=== PATIENT | female | born 1985 | race Hispanic/Latino ===

== ENCOUNTER 2021-08-21 12:24 | Outpatient (CLI) | payer OTHER ==
[2021-08-22 01:42] LABS: SARS-CoV-2 PCR by NAA Not Detected (NotDetected)
== END 2021-08-21 12:25 | disposition home or self-care (01) ==
LOC: CSHLAB 12:24
PROVIDERS: ATTEND Family Medicine
DX: Z01.812 Encounter for preprocedural laboratory examination (principal); Z20.822 Contact with and (suspected) exposure to COVID-19
CPT/HCPCS: U0003; U0005

== ENCOUNTER 2021-08-25 19:11 | Inpatient (IN) | payer OTHER ==
[~2021-08-25 19:11] MED LIST: Bupivacaine 0.25% HCL 30 ML VIAL ONE
[2021-08-25] MEDS ORDERED: Ibuprofen 800 MG TAB PO PRN (19:44)
[2021-08-25] MEDS ORDERED: Acetaminophen/Codeine 30-300mg Tablet PO PRN (19:44)
[2021-08-25] MEDS ORDERED: hydrALAZINE 20 MG/ML VIAL SLOW IVP PRN (19:44)
[2021-08-25] MEDS ORDERED: Butorphanol Tartrate 1 MG/ML VIAL SLOW IVP PRN (19:44)
[2021-08-25] MEDS ORDERED: Misoprostol 200 MCG TAB PR PRN (19:44)
[2021-08-25] MEDS ORDERED: Ondansetron PF 4 MG/2 ML Vial IVP PRN (19:44)
[2021-08-25] MEDS ORDERED: Methylergonovine 0.2 MG/ML VIAL IM PRN (19:44)
[2021-08-25] MEDS ORDERED: Diphenoxylate HCl/Atropine Tablet PO PRN (19:44)
[2021-08-25] MEDS ORDERED: Acetaminophen 500 MG TAB PO PRN (19:44)
[2021-08-25] MEDS ORDERED: Carboprost 250 MCG/ML AMP IM PRN (19:44)
[2021-08-25] MEDS ORDERED: Lidocaine 1% (PF) 30 ML VIAL SC PRN (19:44)
[2021-08-25] MEDS ORDERED: Meperidine HCl/PF 25 MG/ML VIAL IM/IV PRN (19:44)
[2021-08-25] MEDS ORDERED: Promethazine HCl 25 MG/ML VIAL IM PRN (19:44)
[2021-08-25] MEDS ORDERED: NS w/ Oxytocin 30 units 500 ML IV SCH (19:45)
[2021-08-25 21:52] LABS: Hemoglobin 12.9 g/dL (12.0-15.5); Mean Corpuscular HGB CONC 32.8 g/dL (32.0-36.0); Mean Corpuscular Hemoglobin 30.1 pg (27.0-33.0); Mean Corpuscular Volume 91.6 fl (81.6-98.3); Mean Platelet Volume 10.9 fl (7.4-10.4); Platelet Count 206 10x3/uL (150-450); RBC Distribution Width 13.2 % (11.5-14.5); Red Blood Cell (RBC) Count 4.29 10x6/uL (3.90-5.03); White Blood Cell (WBC) Count 11.4 10x3/uL (3.5-10.5)
[2021-08-25] MEDS ORDERED: Misoprostol 100 MCG TAB ONE (21:54)
[2021-08-25] MEDS ORDERED: Misoprostol 100 MCG TAB VAG SCH (22:00)
[2021-08-25 22:29] LABS: Hep B Surf Ag Non-Reactive S/CO (NonReactive); Syphilis Antibody Nonreactive (Nonreactive); Syphilis Antibody Index 0.18 S/CO (<1.00 Non-Reactive)
[2021-08-25 22:33] LABS: HBSAg Index 0.18 S/CO (0-0.99)
[2021-08-26 01:00] VITALS: BMI 30.9
[2021-08-26] MEDS ORDERED: Fentanyl 2 mcg/Bup 0.1% Cadd 100 ML ONE ×2 (06:29→13:42)
[2021-08-26] MEDS ORDERED: diphenhydrAMINE 50 MG/ML VIAL IVP PRN (09:05)
[2021-08-26] MEDS ORDERED: Promethazine HCl 25 MG/ML VIAL IM PRN (09:05)
[2021-08-26] MEDS ORDERED: Naloxone HCl 0.4 mg/ml Vial IVP PRN ×2 (09:05)
[2021-08-26] MEDS ORDERED: Lactated Ringer's 500 ML IV PRN (09:05)
[2021-08-26] MEDS ORDERED: Ondansetron PF 4 MG/2 ML Vial IVP PRN (09:05)
[2021-08-26] MEDS ORDERED: ePHEDrine Sulfate 50 MG/10 ML VIAL SLOW IVP PRN (09:05)
[2021-08-26] MEDS ORDERED: Hydrocerin (Eucerin) Cream 120 gm Jar TOP PRN (09:05)
[2021-08-26] MEDS ORDERED: Fentanyl 2 mcg/Bupivacaine 0.1% Cassette 100 ML EPIDURAL SCH (09:15)
[2021-08-26] MEDS ORDERED: Communication Order-Pharmacy FS SCH (09:15)
[2021-08-26] MEDS ORDERED: Fentanyl 100 MCG/2 ML VIAL ONE (09:59)
[2021-08-26] MEDS: Lactated Ringer's 1,000 ML IV SCH (11:05)
[2021-08-27] MEDS ORDERED: Measles/Mumps/Rubella 10 MCG/0.5 ML VIAL SC ONE (01:01)
[2021-08-27] MEDS ORDERED: Lanolin Ointment 7 GM TUBE TOP PRN (01:01)
[2021-08-27] MEDS ORDERED: Preparation H Ointment 28 GM TUBE PR PRN (01:01)
[2021-08-27] MEDS ORDERED: Boostrix 0.5 ML (Tdap) VIAL IM ONE (01:01)
[2021-08-27] MEDS ORDERED: Milk Of Magnesia 30 ML UDCUP PO PRN (01:01)
[2021-08-27] MEDS ORDERED: Bisacodyl 10 MG SUPP PR PRN (01:01)
[2021-08-27] MEDS ORDERED: diphenhydrAMINE 25 MG CAP PO PRN (01:01)
[2021-08-27] MEDS ORDERED: hydrALAZINE 20 MG/ML VIAL SLOW IVP PRN (01:01)
[2021-08-27] MEDS ORDERED: Varicella virus, LIVE 0.5 ML VIAL SC ONE (01:01)
[2021-08-27] MEDS ORDERED: Benzocaine-Menthol 82.5 ML CAN TOP PRN (01:01)
[2021-08-27] MEDS ORDERED: Ondansetron PF 4 MG/2 ML Vial IVP PRN (01:01)
[2021-08-27] MEDS: Ibuprofen 800 MG TAB PO SCH ×4 (06:07→21:59)
[2021-08-27] MEDS: Docusate Calcium (SURFAK) 240 MG CAP PO SCH ×3 (08:31→21:58)
[2021-08-27] MEDS: Prenatal Vitamin 1 TAB PO SCH (08:39)
[2021-08-27] MEDS: Ferrous Sulfate 325 MG TAB PO SCH ×2 (08:40→17:28)
[2021-08-27] MEDS: Lactated Ringer's 1,000 ML IV SCH ×2 (10:46→10:47)
[2021-08-27] MEDS ORDERED: Simethicone Chewable 80 MG TAB PO PRN (20:58)
[2021-08-28] MEDS: Acetaminophen 325 MG TAB PO PRN ×2 (02:44→07:58)
[2021-08-28] MEDS: Ibuprofen 800 MG TAB PO SCH ×2 (05:46→13:37)
[2021-08-28 07:53] VITALS: BP 133/83; TEMP 98.4
[2021-08-28] MEDS: Ferrous Sulfate 325 MG TAB PO SCH (07:58)
[2021-08-28] MEDS: Docusate Calcium (SURFAK) 240 MG CAP PO SCH (07:58)
[2021-08-28] MEDS: Prenatal Vitamin 1 TAB PO SCH (07:58)
== END 2021-08-28 16:45 | disposition home or self-care (01) | DRG 807 ==
LOC: CSHLD 19:11 → CSHPP 08-27 00:15
PROVIDERS: ADMIT Family Medicine; ATTEND Family Medicine
PROC: 10E0XZZ Delivery of Products of Conception, External Approach (ICD-10-PCS; principal; 2021-08-26)
PROC: 0KQM0ZZ Repair Perineum Muscle, Open Approach (ICD-10-PCS; 2021-08-26)
DX: O70.1 Second degree perineal laceration during delivery (principal); Z37.0 Single live birth; Z3A.40 40 weeks gestation of pregnancy
CPT/HCPCS: 36415; 85027; 86780; 86850; 86900; 86901; 87340; J2405; J2590; J3010; J7120; S0020